=== PATIENT | female | born 1995 | race American Indian/Alaskan Native ===

== ENCOUNTER 2017-10-10 04:33 | Inpatient (IN) | payer MEDICAID ==
--- NOTE | 2017-10-10 05:33 | OBHP ---
Datetime: 10/10/2017 05:31 IP Adm Impression: Term, intrauterine IP Admit Plan: Initiate labor protocol Admit Comment, IP Provider: PT is a 22 y/o female with IUP 40.3wks, ANIBAL 10/07 presents with CTX since 4 am and leakage of fluid at 4am this morning. Pt denies vb and reports +fm. PNC: [facility], GBS negative, late registration, +1hr GGT, 3 hr not compled OBHx: denies PMHX: denies PSurgHx: denies Meds: PNV NKDA Denies smoking, drugs, alcohol VSS General: Comfortable, NAD, AOx3 Respiratory: CTABL Cardiac: RRR, no murmurs Abdomen: Gravid, NT Extremities: No Edema Pelvic: gross fluid leaking Assessment: IUP at 40.3 wks with SROM Plan: Admit to L_D. Continous monitoring. OB Hospitalist Addendum: Pt seen and examined by me. Agree w/ above. 22 yo G1 at 40+3 wks w/ SRO M clear fluid. GBS negaitve. Pt admitted to L_D. (ES) FHR - Baseline A Provider: 130's EGA AdmitDate IP: 40.3 IP Indication for Induction: Not Applicable IP Chief Complaint: Suspected ruptured membranes NICHD Variability Prov Fetus A: Moderate 6-25bpm NICHD Accel Fetus A IP Provider: [id number] FHR Category Provider Fetus A: Category II NICHD Decel Fetus A IP Provider: Early Datetime: 10/10/2017 05:02 Pelvic Type - PN: Adequate Extremities - PN: Normal Abdomen - PN: Normal Back - PN: Normal Breast - PN: Not Done Lungs - PN: Normal Heart - PN: Normal Thyroid - PN: Normal Neurologic - PN: Normal HEENT - PN: Normal General - PN: Normal Amniotic Fluid Color, Provider: Clear Membranes, Provider: Ruptured Contraction Comments Provider: Q2-5 Vital Signs Provider: Reviewed; Within Normal Limits Dilatation, Provider: 6 Effacement, Provider: 80 Station, Provider: -3 Genitourinary Exam: Normal DTRs - PN: Not Done
--- NOTE | 2017-10-10 05:36 | OBADHP ---
Datetime: 10/10/2017 05:31 Admit Comment, IP Provider: PT is a 22 y/o female with IUP 40.3wks, ANIBAL 10/07 presents with CTX since 4 am and leakage of fluid at 4am this morning. Pt denies vb and reports +fm. PNC: [facility], GBS negative, late registration, +1hr GGT, 3 hr not compled OBHx: denies PMHX: denies PSurgHx: denies Meds: PNV NKDA Denies smoking, drugs, alcohol VSS General: Comfortable, NAD, AOx3 Respiratory: CTABL Cardiac: RRR, no murmurs Abdomen: Gravid, NT Extremities: No Edema Pelvic: gross fluid leaking Assessment: IUP at 40.3 wks with SROM Plan: Admit to L_D. Continous monitoring. OB Hospitalist Addendum: Pt seen and examined by me. Agree w/ above. 22 yo G1 at 40+3 wks w/ SRO M clear fluid. GBS negaitve. Pt admitted to L_D. (ES) Extremities - PN: Normal Abdomen - PN: Normal Back - PN: Normal Lungs - PN: Normal Heart - PN: Normal General - PN: Normal FHR - Baseline A Provider: 130's Amniotic Fluid Color, Provider: Clear Membranes, Provider: Ruptured Contraction Comments Provider: Q2-5 Vital Signs Provider: Reviewed IP Chief Complaint: Suspected ruptured membranes NICHD Variability Prov Fetus A: Moderate 6-25bpm NICHD Accel Fetus A IP Provider: [id number] FHR Category Provider Fetus A: Category II NICHD Decel Fetus A IP Provider: Early Dilatation, Provider: 6 Effacement, Provider: 80 Station, Provider: -3 Genitourinary Exam: Normal EGA AdmitDate IP: 40.3 IP Adm Impression: Term, intrauterine IP Admit Plan: Initiate labor protocol Datetime: 10/10/2017 05:02 Pelvic Type - PN: Adequate Breast - PN: Not Done Thyroid - PN: Normal Neurologic - PN: Normal HEENT - PN: Normal DTRs - PN: Not Done
[2017-10-10] MEDS ORDERED: Oxytocin 30 UNITS in Sodium Chloride 0.9% 500 ML IV PRN (05:37)
[2017-10-10] MEDS: Lactated Ringer's 1,000 ML IV SCH ×4 (05:40→17:30)
[2017-10-10 06:08] VITALS: BMI 36.5
[2017-10-10 06:26] LABS: BASO % 0.3 % (0.0-2.0); EOS # 0.1 K/uL (0.0-0.7); EOS % 0.8 % (0.0-4.0); HEMOGLOBIN 8.2 g/dL (12.0-16.0); LYMPH # 1.4 K/uL (1.0-4.3); LYMPH % 13.9 % (20.0-40.0); MEAN CELL VOLUME 75.9 fl (81.0-99.0); MEAN CORPUSCULAR HEMOGLOBIN 24.4 pg (27.0-31.0); MEAN CORPUSCULAR HGB CONC 32.1 g/dL (33.0-37.0); MEAN PLATELET VOLUME 7.4 fl (7.2-11.7); MONO # 0.6 K/uL (0.0-0.8); MONO % 5.8 % (0.0-10.0); NEUT # 8.2 K/uL (1.8-7.0); NEUT % 79.2 % (50.0-75.0); RBC 3.37 Mil/uL (3.80-5.20); RED CELL DISTRIBUTION WIDTH 14.9 % (11.5-14.5); WHITE BLOOD COUNT 10.4 K/uL (4.8-10.8)
[2017-10-10 06:30] VITALS: O2SAT 100
[2017-10-10] MEDS ORDERED: Bupivacaine HCl 0.25% PF (10 ml) Inj ONE (09:03)
[2017-10-10] MEDS ORDERED: Fentanyl/Bupivacaine HCl 250 ML EPI ONE (09:23)
--- NOTE | 2017-10-10 11:42 | OBPN ---
Datetime: 10/10/2017 11:37 IP Progress Impression: Normal progression of labor IP Informed Consent Obtain: Vaginal Delivery IP Procedures: Sterile Vag Exam IP Progress Plan: Continue present management Membranes, Provider: Ruptured Contraction Comments Provider: q 5-6 mins FHR - Baseline A Provider: 150 IP Progress Note Comment: Patient evaluated, comfortable s/p epidural VE=50/-2 ISG=413 mod raghu, early decels TOCO = ctxning q 5-6 mins A/P 1. Patient 6cm, ctxning q 5-6 mins. Will start Pitocin for augmentation 2. CEFM and TOCO 3. Re-evaluate as needed Vital Signs Provider: Reviewed; Within Normal Limits NICHD Variability Prov Fetus A: Moderate 6-25bpm Dilatation, Provider: 6 Effacement, Provider: 50 Station, Provider: -2 NICHD Decel Fetus A IP Provider: Early Datetime: 10/10/2017 05:31 Amniotic Fluid Color, Provider: Clear NICHD Accel Fetus A IP Provider: [id number] FHR Category Provider Fetus A: Category II
[2017-10-10] MEDS: Oxytocin 30 UNITS in Sodium Chloride 0.9% 500 ML IV ONE ×2 (12:30→22:02)
--- NOTE | 2017-10-10 14:33 | OBPN ---
Datetime: 10/10/2017 14:29 IP Progress Impression: Normal progression of labor IP Informed Consent Obtain: Vaginal Delivery IP Procedures: Sterile Vag Exam IP Progress Plan: Continue present management FHR - Baseline A Provider: 150 IP Progress Note Comment: Patient evaluated, feeling a little bit of pressure VE=7-8/80/-1 GUK=683 mod raghu, no accels, no decels TOCO = ctxning 3-7. Pitocin @ 8 mu/min A/P 1. continue pitocin for augmentation. 2. CEFM and TOCO 3. Re-evaluate as needed Vital Signs Provider: Reviewed; Within Normal Limits NICHD Variability Prov Fetus A: Moderate 6-25bpm Dilatation, Provider: 7-8 Effacement, Provider: 80 Station, Provider: -1 NICHD Decel Fetus A IP Provider: Early
[2017-10-10] MEDS ORDERED: Lidocaine 1% Inj (20ml) ONE (18:50)
[2017-10-10] MEDS ORDERED: Gentamicin 420 MG in Sodium Chloride 0.9% 100 ML IVPB SCH (19:45)
[2017-10-10] MEDS ORDERED: AMPicillin 2 GM in Sodium Chloride 0.9% 100 ML IVPB ONE (20:00)
[2017-10-10] MEDS ORDERED: AMPICILLIN IVPB SCH (22:00)
[2017-10-10] MEDS ORDERED: PED IVPB SCH (22:00)
[2017-10-10] MEDS ORDERED: Benzocaine/Menthol SPRAY TOP PRN ×2 (22:24→23:02)
--- NOTE | 2017-10-10 23:16 | OBDS ---
DELIVERY PERSONNEL Delivery Doctor: Greg Camp MD Wet Press Tender: Roseline Rodriguez RN / Jarad Anesthesiologist: Pushpa Matthews MD Resident: Owen MATERNAL INFORMATION Delivery Anesthesia: Epidural Medications in Delivery: Pitocin Estimated Blood Loss (ml): 200 Placenta Cultured: No Maternal Complications: Maternal Fever RN Comments: 101.1 fever, tx abx genta 420mh _ ampi 2g @ 2015 Provider Comments: of live female over intact perineum, 6lbs 12oz, 9/9, followed by blanca pugh and rest of infant, mouth and nose suctioned, cord clamped and cut, cord blood obtained, placen ta delivered manually, fundus firm, EBL = 200mL, 2nd degree repaired with 2-0 vicryl rapide, pt nas ated procedure LABOR SUMMARY EDC: 10/07/2017 00:00 No. Babies in Womb: 1 Attempted: No Labor Anesthesia: Epidural LABOR INFORMATION Reason for Induction: Not Applicable Onset of Labor: 10/10/2017 05:00 Complete Dilatation: 10/10/2017 20:40 Oxytocin: Augmentation Group B Beta Strep: Negative Antibiotics # of Doses: 2 Antibiotics Time of Last Dose: 2015 Steroids Given: None Reason Steroids Not Administered: Not Applicable MEMBRANES Membranes Rupture Method: Spontaneous Rupture of Membranes: 10/10/2017 04:10 Length of Rupture (hrs): 17.80 Amniotic Fluid Color: Clear Amniotic Fluid Amount: Large Amniotic Fluid Odor: Normal STAGES OF LABOR Stage 1 hrs: 15 Stage 1 min: 40 Stage 2 hrs: 1 Stage 2 min: 18 Stage 3 hrs: 0 Stage 3 min: 4 Total Time in Labor hrs: 17 Total Time in Labor min: 2 VAGINAL DELIVERY Episiotomy: None Laceration Extension: Second Degree Laceration Type: Vaginal Laceration Repair: Yes Initial Vag Sponge Count: 15 Final Vag Sponge Count: 15 Initial Vag Sharps Count: 2 Final Vag Sharps Count: 2 Sponge Count Correct: Yes Sharps Count Correct: Yes Count Comment: count correct BABY A INFORMATION Infant Delivery Date/Time: 10/10/2017 21:58 Method of Delivery: Vaginal Born in Route : No : Successful Forceps: N/A Vacuum Extraction: N/A Shoulder Dystocia : No SHOULDER DYSTOCIA BABY A Infant Delivery Date/Time: 10/10/2017 21:58 PRESENTATION/POSITION BABY A Presentation: Cephalic Cephalic Presentation: Vertex PLACENTA INFORMATION BABY A Placenta Delivery Time : 10/10/2017 22:02 Placenta Method of Delivery: Spontaneous Placenta Status: Delivered SCORES BABY A Heart Rate 1 min: >100 bpm Resp Effort 1 min: Good Cry Reflex Irritability 1 min: Cough or Sneeze or Pulls Away Muscle Tone 1 min: Active Motion Color 1 min: Body Athelstan, Extremities Blue Resuscitation Effort 1 min: Tactile Stimulation SCORE 1 MIN: 9 Heart Rate 5 min: >100 bpm Resp Effort 5 min: Good Cry Reflex Irritability 5 min: Cough or Sneeze or Pulls Away Muscle Tone 5 min: Active Motion Color 5 min: Body Athelstan, Extremities Blue Resuscitation Effort 5 min: N/A SCORE 5 MIN: 9 INFORMATION BABY A Gestational Age at Delivery: 40.3 Gestational Status: Term Infant Outcome : Liveborn Condition : Stable Sex: Female IDENTIFICATION/MEDS BABY A ID Band Number: [id number] ID Band Location: Left Leg; Left Arm WEIGHT/LENGTH BABY A Infant Birthweight (gms): 3080 Weight (lb): 6 Weight (oz): 13 CORD INFORMATION BABY A No. Cord Vessels: 3 Nuchal Cord : N/A Nuchal Cord Other: n/a True Knot: n/a Cord pH Baby Arterial: n/a Cord pH Baby Venous: n/a Cord Blood Taken: Yes Banking/Donate Info: n/a Suction: Mouth; Nose
[2017-10-11] MEDS ORDERED: Oxycodone/Acetaminophen 5/325 mg Tab PO PRN ×2 (04:42)
[2017-10-11 11:13] LABS: BASO % 0.1 % (0.0-2.0); EOS % 0.3 % (0.0-4.0); LYMPH # 1.5 K/uL (1.0-4.3); LYMPH % 12.6 % (20.0-40.0); MEAN CELL VOLUME 76.4 fl (81.0-99.0); MEAN CORPUSCULAR HEMOGLOBIN 23.8 pg (27.0-31.0); MEAN CORPUSCULAR HGB CONC 31.1 g/dL (33.0-37.0); MEAN PLATELET VOLUME 7.1 fl (7.2-11.7); MONO # 1.2 K/uL (0.0-0.8); MONO % 10.6 % (0.0-10.0); NEUT % 76.4 % (50.0-75.0); NRBC % 0.1 % (0.0-0.0); RBC 2.2 Mil/uL (3.80-5.20); RED CELL DISTRIBUTION WIDTH 15.1 % (11.5-14.5); WHITE BLOOD COUNT 11.7 K/uL (4.8-10.8)
[2017-10-11 11:28] LABS: HEMOGLOBIN 5.2 g/dL (12.0-16.0)
--- NOTE | 2017-10-11 21:16 | OBPPN ---
Datetime: 10/11/2017 17:43 PP Heart Prov: Normal PP Lungs Prov: Normal PP Progress Note Prov: Late entry into record; pt was seen and examined at 12:00. Pt's CBC this am showed Hgb 5.2 and hematocrit 16.8; pt was seen and evaluated at beside for dizzi ness, palpitations, weakness, other sx of anemia. Pt was asymptomatic, stated she did not feel differ ent from her baseline. Reason for recommendation for transfusion was discussed, as well as risks and benefits, consent fo rm was provided and consent was obtained. 2U PRBC ordered At the time of this note, pt has recevied 1U, and second unit currently infusing. No adverse react ions noted. Repeat CBC in am Pt discussed w/ Dr. Ahn. [email or web address] Ob Hospitalist note on PPD 1: pt seen ealrier today rpior to transfusions. She understood and agr eed to transfusion IP PP Procedures: Transfusion Vital Signs Provider PP: Reviewed Datetime: 10/11/2017 06:09 PP Pain Prov: Within normal limits PP Nausea Prov: Denies PP Flatus Prov: Yes PP BM Prov: No PP Breasts Prov: Not Done PP Abdomen/Uterus Prov: Normal PP Lochia Prov: Normal PP Vulva/Perineum Prov: Not Done PP CVA Tenderness Prov: Not Done PP Extremities Prov: Normal PP Impression Prov: Normal progression PP Plan Prov: Continue present management
[2017-10-12 06:43] LABS: BASO % 0.3 % (0.0-2.0); EOS # 0.1 K/uL (0.0-0.7); HEMOGLOBIN 7.4 g/dL (12.0-16.0); LYMPH % 19.5 % (20.0-40.0); MEAN CELL VOLUME 78.7 fl (81.0-99.0); MEAN CORPUSCULAR HEMOGLOBIN 26.9 pg (27.0-31.0); MEAN CORPUSCULAR HGB CONC 34.1 g/dL (33.0-37.0); MEAN PLATELET VOLUME 7.1 fl (7.2-11.7); MONO # 0.8 K/uL (0.0-0.8); MONO % 8.1 % (0.0-10.0); NEUT # 7.4 K/uL (1.8-7.0); NEUT % 71.1 % (50.0-75.0); NRBC % 0.1 % (0.0-0.0); RBC 2.75 Mil/uL (3.80-5.20); WHITE BLOOD COUNT 10.4 K/uL (4.8-10.8)
--- NOTE | 2017-10-12 08:51 | OBPPN ---
Datetime: 10/12/2017 06:07 PP Pain Prov: Within normal limits PP Nausea Prov: Denies PP Flatus Prov: Yes PP BM Prov: No PP Breasts Prov: Not Done PP Heart Prov: Normal PP Lungs Prov: Normal PP Abdomen/Uterus Prov: Normal PP Lochia Prov: Normal PP Vulva/Perineum Prov: Not Done PP CVA Tenderness Prov: Not Done PP Extremities Prov: Normal PP C/S Incision Prov: Not Applicable PP Progress Prov: Normal PP Impression Prov: Normal progression PP Plan Prov: Continue present management; Discharge PP Progress Note Prov: PPD2 Pt is a 22 y/o female s/p on 10/10/17 post day 2. Pt was transfused 2 units of LA BC yesterday after she was noted to have a hemoglobin of 5. Pt was re-examined in the evening post tr ansfusion- no adverse reaction noted. Pt reported mild dizziness with ambulation. Denied chest pain, sob, palpatations, or syncopy. Abdominal pain well controlled. Lochia is similar to menses. Urinating without any problems. No BM. Breast feeding baby without any difficulty. Tolerating regular diet. O: Vitals stable overnight, afebrile General: Comfortable, NAD Cardio: RRR, no murmurs Pulm: CTABL Abdomen: Soft, appropriate tenderness, uterus firm, fundal height below umbilicus Extremities: No LE edema Labs: AM CBC pending Meds: Ibuprofen 600mg for pain, [place] for constipation Assessment: s/p on 10/10/17 doing well on post day 2. Post period complic ated with symptomatic anemia s/p PRBC transfusion x2. F/u repeat CBC this am. Continue with medicati ons. Encourage breast feeding and ambulation with caution. Declined TDAP and FLU vaccines. Benefits e xplained. Pt states she would think about it. Anticipating D/C today. Contraception discussed; Undeci ded. Discussed with OB Attending web production artist Rosenda Weaver PGY1 The patient was seen with the resident I agree with the note IP PP Procedures: None Vital Signs Provider PP: Reviewed Vital Signs Provider Details PP: Tachycardia, likely secondaary to anemia
--- NOTE | 2017-10-12 09:02 | OBDCSUM ---
Datetime: 10/12/2017 06:10 Discharged to, Provider: Home Follow up at, Provider: OBGYN Disch Instr Activity: Normal activity; May be up to bathroom; May be up for meals; May Shower Disch Instr Diet: Regular Discharge Instructions, Provider: Routine instructions given Discharge Diagnosis, Provider: Term Delivered Follow up in weeks, Provider: 4-6 weeks Disch Activity Restrictions: No sexual activity; Nothing in vagina - [place], tampons, douche Discharge Comment, Provider: Discharge Date: 10/13/17 22 y/o female s/p on 10/10/17. complications/risk: +1hr GGT (3hr not taken). TDAP not up to date, pt declined. Post : Symptomatic anemia, s/p transfusion PRBC x2 units. Baby: Female, 3080g, 9/9 Discharge Instructions: 1. Follow up with OBGYN in 4-6 weeks 2. ER precautions given 3. Encourage 4. Continue taking PNV 5. RX provided: Ibuprofen 600mg, Colace 100mg BID, Ferrous Sulfate 325mg BID Discussed with Ob attending Melissa PGY1 The patient was seen with the resident I agree with the note Contraception after Delivery: Undecided
[2017-10-12 23:46] VITALS: BP 98/55; PULSE 93; RESP 20; TEMP 98.1
== END 2017-10-12 15:00 | disposition home or self-care (01) | DRG 372 ==
LOC: H.EROB2 04:33 → H.EROB 05:37 → H.OB/GYN 10-11 00:35
PROVIDERS: ADMIT Obstetrics & Gynecology; ATTEND Obstetrics & Gynecology
PROC: 10E0XZZ Delivery of Products of Conception, External Approach (ICD-10-PCS; principal; 2017-10-10)
PROC: 0KQM0ZZ Repair Perineum Muscle, Open Approach (ICD-10-PCS; 2017-10-10)
PROC: 4A1HXCZ Monitoring of Products of Conception, Cardiac Rate, External Approach (ICD-10-PCS; 2017-10-10)
PROC: 30233N1 Transfusion of Nonautologous Red Blood Cells into Peripheral Vein, Percutaneous Approach (ICD-10-PCS; 2017-10-11)
DX: O48.0 Post-term pregnancy (principal); O75.2 Pyrexia during labor, not elsewhere classified; O90.81 Anemia of the puerperium; D64.9 Anemia, unspecified; O70.1 Second degree perineal laceration during delivery; Z37.0 Single live birth; Z3A.40 40 weeks gestation of pregnancy